=== PATIENT | female | born 1960 ===

== ENCOUNTER 2018-09-02 14:05 | Emergency (ER) | payer SELFPAY ==
[2018-09-02 14:40] VITALS: BP 124/79; PULSE 62; RESP 18; TEMP 98.3; O2SAT 98
--- NOTE | 2018-09-02 15:45 | ED PDOC ---
Lower Extremity Pain/Injury Time Seen by Provider: 09/02/18 14:56 Chief Complaint (Nursing): Lower Extremity Problem/Injury Chief Complaint (Provider): Left buttock/hip pain History Per: Patient History/Exam Limitations: no limitations Onset/Duration Of Symptoms: Days Current Symptoms Are (Timing): Still Present Additional Complaint(s): 58yo female, comes to ER reproting intermittent left hip pain for the past 4 days. She denies any trauma or injury to the site. She also denies any bowel or bladder incontinence. Patient has not taken any medications for her symptoms. No additional complaints. PMD: None provided Past Medical History Reviewed: Historical Data, Nursing Documentation, Vital Signs Vital Signs: Last Vital Signs Temp 98.3 F 09/02/18 14:37 Pulse 62 09/02/18 14:37 Resp 18 09/02/18 14:37 BP 124/79 09/02/18 14:37 Pulse Ox 98 09/02/18 14:37 Primary Care Provider: FAMILY PROVIDER,NO - Surgical History Surgical History: No Surg Hx - Family History Family History: States: Unknown Family Hx - Home Medications Home Medications: Ambulatory Orders Medication Instructions Recorded Acetaminophen with Codeine 1 tab PO Q6H PRN #15 tab 02/08/16 [Tylenol with Codeine No. 3 300 mg-30 mg] traMADol [Ultram] 50 mg PO TID PRN #15 tab 02/13/16 valACYclovir [Valtrex] 1 gm PO TID #21 tab 02/13/16 Nitrofurantoin Macrocrystals 100 mg PO BID 7 Days cap 06/06/16 [Macrobid] Cyclobenzaprine [Cyclobenzaprine 10 mg PO Q8H #20 tab 09/02/18 HCl] Naproxen [Naprosyn] 500 mg PO BID PRN #20 tablet 09/02/18 - Allergies Allergies/Adverse Reactions: Allergies Allergy/AdvReac Type Severity Reaction Status Date / Time No Known Allergies Allergy Verified 09/02/18 14:40 Review of Systems Genitourinary Female: Negative for: Incontinence Musculoskeletal: Positive for: Other (left hip/buttock pain) Neurological: Negative for: Weakness, Numbness Physical Exam - Reviewed Nursing Documentation Reviewed: Yes Vital Signs Reviewed: Yes - Physical Exam Appears: Positive for: No Acute Distress Head Exam: Positive for: ATRAUMATIC, NORMAL INSPECTION, NORMOCEPHALIC Skin: Positive for: Normal Color Eye Exam: Positive for: Normal appearance Neck: Positive for: Supple Cardiovascular/Chest: Positive for: Regular Rate, Rhythm Respiratory: Positive for: Normal Breath Sounds. Negative for: Respiratory Distress Back: Positive for: Other (left SI joint tendernessz). Negative for: Vertebral Tenderness Extremity: Positive for: Normal ROM. Negative for: Deformity, Swelling Neurological/Psych: Positive for: Awake, Alert, Normal Tone. Negative for: Motor/Sensory Deficits - ECG O2 Sat by Pulse Oximetry: 98 (RA) Pulse Ox Interpretation: Normal Medical Decision Making Medical Decision Making: Impression: Buttock pain, likely sciatica Plan: -- Flexeril 10mg PO -- Naproxen 500mg PO Pt reports improvement after medications. Scribe Attestation: Documented by Blanka Villanueva, acting as a scribe for SAGAR Mata Provider Scribe Attestation: All medical record entries made by the Scribe were at my direction and personally dictated by me. I have reviewed the chart and agree that the record accurately reflects my personal performance of the history, physical exam, medical decision making, and the department course for this patient. I have also personally directed, reviewed, and agree with the discharge instructions and disposition. Disposition - Clinical Impression Clinical Impression: Sciatica - Patient ED Disposition Is Patient to be Admitted: No Counseled Patient/Family Regarding: Diagnosis, Need For Followup, Rx Given - Disposition Disposition: Routine/Home Disposition Time: 16:20 Condition: GOOD Prescriptions: Cyclobenzaprine [Cyclobenzaprine HCl] 10 mg PO Q8H #20 tab Naproxen [Naprosyn] 500 mg PO BID PRN #20 tablet PRN Reason: Pain Instructions: Sciatica Exercises, Sciatica (DC) Forms: [employer] (E[place]ian) Print Language: CYPRIOT
[2018-09-02] MEDS ORDERED: Naproxen 500 MG TAB PO STA (15:48)
[2018-09-02] MEDS ORDERED: Naproxen 500 MG TAB PO ONE (16:07)
== END 2018-09-02 16:52 | disposition home or self-care (01) ==
LOC: H.ER 14:05
DX: M54.30 Sciatica, unspecified side (principal)